=== PATIENT | male | born 1970 | race Caucasian/White ===

== ENCOUNTER 2022-10-29 07:49 | Outpatient (CLI) | payer BC, SELFPAY ==
[2022-10-29 12:17] LABS: Albumin* 4.8 g/dL (3.3-5.0); Chloride* 106 mmol/L (96-114)
[2022-10-29 12:18] LABS: Potassium* 4.6 mmol/L (3.6-5.1); Sodium* 140 mmol/L (135-149)
[2022-10-29 12:20] LABS: Aspartate Amino Transferase* 25 U/L (12-35); Bilirubin Total* 0.9 mg/dL (0.1-1.5); Blood Urea Nitrogen* 23 mg/dL (5-24); Carbon Dioxide* 26 mmol/L (20-32); Cholesterol* 152 mg/dL (90-199); Creatinine* 0.9 mg/dL (0.5-1.5); Estimated Glomerular Filt Rate 105 ml/min; Glucose* 97 mg/dL (60-115); Total Protein* 7.7 g/dL (6.0-8.3)
[2022-10-29 12:21] LABS: Alanine Aminotransferase* 30 U/L (4-50); Alkaline Phosphatase* 45 U/L (40-150); Calcium* 9.4 mg/dL (8.4-10.6); HDL Cholesterol* 41 mg/dL (>=40); LDL Cholesterol Calculated 80 mg/dL (<100); Triglycerides* 157 mg/dL (40-149)
== END 2022-10-29 07:50 | disposition home or self-care (01) ==
PROVIDERS: PCP Family Medicine; Visit Provider Physician Assistant Medical
DX: E78.2 Mixed hyperlipidemia (principal); I10 Essential (primary) hypertension
CPT/HCPCS: 80053; 80061

== ENCOUNTER 2024-01-20 23:36 | Outpatient (REF) | payer BC, SELFPAY | END 2024-01-20 23:37 | disposition home or self-care (01) | LOC: NPINS 23:36 | PROVIDERS: PCP Physician Assistant Medical; Visit Provider Orthopaedic Surgery | DX: Z11.9 Encounter for screening for infectious and parasitic diseases, unspecified (principal) | CPT/HCPCS: 87081 ==

== ENCOUNTER 2024-05-03 09:50 | Outpatient (CLI) | payer BC, SELFPAY | END 2024-05-03 09:51 | disposition home or self-care (01) | LOC: NFLDREF 05-07 07:20 | PROVIDERS: PCP Physician Assistant Medical; Referring Provider Physician Assistant Medical; Visit Provider Physician Assistant Medical | DX: R53.83 Other fatigue (principal); E78.5 Hyperlipidemia, unspecified | CPT/HCPCS: 80061; 82306; 82607; 82728; 84403; 84443; 84450; 84460 ==

== ENCOUNTER 2024-12-06 15:19 | Outpatient (CLI) | payer BC, SELFPAY | END 2024-12-06 15:20 | disposition home or self-care (01) | LOC: NFLDREF 12-08 04:20 | PROVIDERS: PCP Physician Assistant Medical; Referring Provider Physician Assistant Medical; Visit Provider Physician Assistant Medical | DX: I10 Essential (primary) hypertension (principal); E78.2 Mixed hyperlipidemia; N52.9 Male erectile dysfunction, unspecified; R53.83 Other fatigue; Z12.5 Encounter for screening for malignant neoplasm of prostate | CPT/HCPCS: 80053; 80061; 82306; 84443; G0103 ==

== ENCOUNTER 2024-12-15 10:34 | Outpatient (CLI) | payer BC, SELFPAY ==
--- NOTE | 2024-12-15 11:00 | CRLHL7_ITS ---
For Patients: As a result of the Century Cures Act, medical imaging exams and procedure reports are released immediately into your electronic medical record. You may view this report before your referring provider. If you have questions, please contact your health care provider. INDICATION: Left groin pain. TECHNIQUE: CT abdomen and pelvis acquired with 133 cc Isovue 370 IV contrast. COMPARISON: CT abdomen and pelvis May 2021 FINDINGS: Lower chest: Unremarkable. Liver: Normal in size and attenuation. No suspicious masses. Diffuse hepatic steatosis. Gallbladder and bile ducts: No stones or inflammation. No biliary dilatation. Pancreas: No mass or inflammation. Spleen: Normal in size. No masses. Adrenal glands: No suspicious mass. Kidneys: Bilateral kidneys are normal in size with symmetric enhancement. No nephrolithiasis or hydronephrosis. Small hypoattenuating Foci at the lower pole of bilateral kidneys are too small to characterize. GI tract: No findings of bowel obstruction. Colonic diverticulosis without diverticulitis. Suggestion of appendectomy. Vasculature: Abdominal aorta is normal in caliber. Lymph nodes: No lymphadenopathy. Peritoneum/Abdominal Wall: No free air or significant free fluid. Pelvis: Limited assessment of pelvis secondary to streak artifact from right total hip arthroplasty. No concerning findings. Prostate appears normal in size. Bones: Lumbar vertebral body height and alignment is maintained. Scattered mild degenerative changes of the spine. IMPRESSION: No acute abnormality in the abdomen and pelvis. Diffuse hepatic steatosis. Colonic diverticulosis without diverticulitis. Please note that all CT scans at this facility use dose modulation, iterative reconstruction, and/or weight-based dosing when appropriate to reduce radiation dose to as low as reasonably achievable. Dictated by Kyleigh Junior MD @ 12/18/2024 10:01:50 AM (Electronically Signed)
== END 2024-12-15 10:35 | disposition home or self-care (01) ==
LOC: CT 10:36
PROVIDERS: PCP Physician Assistant Medical; Visit Provider Physician Assistant Medical
DX: R19.09 Other intra-abdominal and pelvic swelling, mass and lump (principal); K76.0 Fatty (change of) liver, not elsewhere classified; K57.90 Diverticulosis of intestine, part unspecified, without perforation or abscess without bleeding
CPT/HCPCS: 74177; Q9967